=== PATIENT | female | born 1975 | race Hispanic/Latino ===

== ENCOUNTER 2023-07-30 02:16 | Emergency (ER) | payer MEDICAID, OTHER ==
[~2023-07-30] VITALS: Ht 154.9 cm; Wt 72.1 kg
[2023-07-30 02:35] VITALS: BP 132/62; PULSE 89; RESP 18; O2SAT 98
[2023-07-30 02:49] LABS: RAPID GROUP A STREP positive (NEGATIVE)
[2023-07-30 02:55] LABS: INFLUENZA TYPE A Negative For Type A (NEGATIVE); INFLUENZA TYPE B Negative For Type B (NEGATIVE)
[2023-07-30] MEDS ORDERED: PENI500T2 PO (03:07)
[2023-07-30 03:10] LABS: SARS-CoV-2, RNA, NAAT NEGATIVE SARS CoV-2 (NEGATIVE)
[2023-07-30] MEDS: PENICILLIN V POTASSIUM 500 MG TABLET PO ONE (03:25)
== END 2023-07-30 03:31 | disposition home or self-care (01) ==
LOC: EDH 02:16
DX: J02.0 Streptococcal pharyngitis (principal); R50.9 Fever, unspecified; Z20.822 Contact with and (suspected) exposure to COVID-19; Z90.49 Acquired absence of other specified parts of digestive tract; Z90.710 Acquired absence of both cervix and uterus
CPT/HCPCS: 87635; 87804; 87880